=== PATIENT | male | born 1990 | race Caucasian/White ===

== ENCOUNTER 2016-06-04 20:25 | Emergency (ER) | payer MEDICAID ==
[~2016-06-04] VITALS: Ht 177.8 cm; Wt 91.5 kg
[2016-06-04 20:31] VITALS: Ht 177.8 cm; Wt 91.5 kg
--- NOTE | 2016-06-04 21:39 | ERD ---
ER Documentation Chief Complaint Date/Time DATE: 06/04/16 TIME: 21:32 Chief Complaint rash to arms and chest x 1 day (JESS RICHARDS, HARDIK) HPI The patient is a 26-year-old male here with a 1 day complaint of itchy, red, raised rash to both of his arms. He believes that it may be spreading to his chest also. He states that he was sick with a viral type illness approximately 1 week ago with cough, congestion, and body aches. This illness has now resolved. He denies any other symptoms at this time including fever, chills, nausea, vomiting, diarrhea, difficulty breathing, chest pain. He states that he used a new face soap, but no new soap on his arms. He reports that he had recently used a new detergent to wash his clothes. He denies any other new environmental exposures. He denies any medication or environmental allergies. (JESS RICHARDS, HARDIK) ROS All systems reviewed and are negative except as per history of present illness. (JESS RICHARDS, HARDIK) Medications Home Meds Active Scripts Prednisone* (Prednisone*) 20 Mg Tab, 40 MG PO DAILY for 4 Days, TAB Prov:EJSS RICHARDS NP 06/04/16 Diphenhydramine Hcl* (Benadryl*) 25 Mg Cap, 25 MG PO Q6 Y for ITCHING/RASH, #30 TAB Prov:JESS RICHARDS NP 06/04/16 Allergies Allergies: Coded Allergies: No Known Allergy (Unverified , 06/04/16) Physical Exam Vitals Vital Signs Date Time Temp Pulse Resp B/P Pulse Ox O2 Delivery O2 Flow Rate FiO2 06/04/16 20:31 98.1 79 18 128/75 99 (NANO SANDOVAL DO) Physical Exam INITIAL VITAL SIGNS: Reviewed by me, afebrile, no tachycardia GENERAL: Alert. Well developed and well nourished. No acute distress HEAD: Head is normocephalic. Atraumatic. No sinus tenderness to palpation. EYES: EOMI. No scleral icterus. No conjunctival injection. ENT: External ears, nose, and mouth normal. Nasal passages patent. Moist mucous membranes. Throat is clear and without erythema or exudates. Tonsils +2 and without erythema or exudates. Ear canals are clear and without erythema or purulence. Tympanic membranes are normal, positive light reflex, no erythema, no bulging, no effusion. NECK: Supple. Full range of motion. Trachea midline. RESPIRATORY: No tachypnea. Clear to auscultation bilaterally. No wheezing, rales , or rhonchi. CV: Regular rate and rhythm. No murmurs, rubs, or gallops ABDOMEN: Soft, non-distended, non-tender. BACK: No CVA tenderness. Full ROM. EXTREMITIES: No obvious deformity. No clubbing or cyanosis. No edema. SKIN: + Diffuse maculopapular rash to bilateral arms. Excoriations noted to the lateral aspect of the left upper arm. Warm and dry. No diaphoresis. NEUROLOGIC: Alert and oriented x 3. Appropriate. Face is symmetric. Speech is normal. Moves all extremities equally. (JESS RICHARDS NP) Procedures/MDM Nursing Notes Reviewed Previous Medical Records requested via [email or web address]. EMERGENCY DEPARTMENT COURSE / MEDICAL DECISION MAKING: The patient comes to the ED secondary to rash 1 day. Differential diagnosis upon initial evaluation includes but is not limited to: Psoriasis, eczema, allergic reaction, viral exanthem, scarlet fever, and others. The case was discussed with supervising physician Dr. Sandoval, who saw and examined the patient at bedside. It was agreed that the patient's history of present illness and physical exam are most consistent with an allergic type skin reaction at this time. He will be treated with Benadryl and prednisone. Given that the patient did not have any peritonsillar exudates, pharyngitis, or any respiratory tract symptoms, was afebrile, was otherwise feeling well per baseline, I have low suspicion at this time for scarlet fever or any other serious cause of rash. The patient stated that he does not have a history of psoriasis or eczema. Final impression: Allergic skin reaction Based on patient's history of present illness and physical examination the decision was made to discharge. There is no evidence of life threatening injuries or illnesses at this time. On re-examination, patient resting in no distress, stable vital signs, reports feeling safe for discharge with outpatient follow up with PMD in 1-2 days. Patient given return precautions. Prescriptions Benadryl Prednisone 40 mg p.o. 4 days (JESS RICHARDS NP) I saw and assessed this patient and agree that this rash most likely represents an allergic reaction rather than an infectious cause. (NANO SANDOVAL DO) Departure Diagnosis: Primary Impression: Rash due to allergy Condition: Stable JESS RICHARDS NP Jun 04, 2016 21:39 NANO SANDOVAL DO Jun 06, 2016 04:09
[2016-06-04] MEDS ORDERED: BEN25 PO (21:40)
[2016-06-04] MEDS ORDERED: PRED20TA PO (21:40)
== END 2016-06-04 21:43 | disposition home or self-care (01) ==
LOC: E/R 20:25
DX: R21 Rash and other nonspecific skin eruption (principal)
CPT/HCPCS: 99283